=== PATIENT | male | born 1995 | race Caucasian/White ===

== ENCOUNTER 2016-11-06 16:55 | Emergency (ER) | payer BC ==
[~2016-11-06] VITALS: Ht 182.9 cm; Wt 113.6 kg
[~2016-11-06 16:55] MED LIST: AMOXICILLIN 50500 MG PO; CLEOCIN HC150 MG/CAP PO; NORCO 325 MG-51 TAB PO; PROAIR HFA0.09 MG/AC IH
[2016-11-06 17:02] VITALS: TEMP 98.3
[2016-11-06 17:33] LABS: BASO # 0.1 (0.0-0.2); BASO % 0.6 % (0.0-2.0); EOS # 0.3 (0.0-0.7); GRAN # 4.9 (1.4-6.5); GRAN % 50.8 % (42.2-75.2); HEMATOCRIT 44.4 % (42.0-52.0); LYMPH # 3.3 (1.2-3.4); LYMPH % 34.1 % (20.0-51.0); MEAN CELL VOLUME 82 fl (80.0-100.0); MEAN CORPUSCULAR HEMOGLOBIN 30 pg (27.0-31.0); MEAN CORPUSCULAR HGB CONC 36 g/dl (33.0-37.0); MEAN PLATELET VOLUME 9.9 fl (7.4-10.4); MONO # 1.1 (0.1-0.6); MONO % 11.2 % (1.7-9.3); PLATELET COUNT 288 K/mm3 (130-400); RED BLOOD COUNT 5.43 M/mm3 (4.20-5.60); REDCELL DISTRIBUTION WIDTH-CV 11.9 % (11.5-14.5); WHITE BLOOD COUNT 9.7 K/mm3 (4.8-10.8)
[2016-11-06 17:39] LABS: ADJUSTED CALCIUM 8.8 mg/dL (8.4-10.2); ALBUMIN 4.5 gm/dL (3.5-5.0); CALCIUM 9.2 mg/dL (8.4-10.2); CREATININE, serum 0.89 mg/dL (0.66-1.25); POTASSIUM 4.1 mmol/L (3.4-5.0)
[2016-11-06 18:25] LABS: INR 1.1 (0.8-3.0)
[2016-11-06 18:28] LABS: PARTIAL THROMBOPLASTIN TIME 30.5 SECONDS (26.0-37.0)
[2016-11-06] MEDS ORDERED: NORCO 325 MG-51 TAB PO (20:05)
[2016-11-06] MEDS ORDERED: CEPHALEXIN500 M1 PO (20:05)
[2016-11-06 20:16] VITALS: BP 119/75; PULSE 100
== END 2016-11-06 21:00 | disposition home or self-care (01) ==
LOC: COL.ER 16:55
PROVIDERS: Emergency Medicine
DX: S71.101A Unspecified open wound, right thigh, initial encounter (principal); J45.909 Unspecified asthma, uncomplicated; D68.0 Von Willebrand disease; W32.0XXA Accidental handgun discharge, initial encounter; Y92.009 Unspecified place in unspecified non-institutional (private) residence as the place of occurrence of the external cause
CPT/HCPCS: J2765; J3010; J7030; Q9967